=== PATIENT | female | born 1995 | race Hispanic/Latino ===

== ENCOUNTER 2023-07-14 21:03 | Emergency (ER) | payer OTHER ==
[~2023-07-14] VITALS: Ht 162.6 cm; Wt 102.1 kg
[2023-07-14] MEDS: ACETAMINOPHEN 325 MG TAB PO STA (21:32)
[2023-07-14 21:52] LABS: CLARITY,URINE CLEAR (CLEAR); COLOR,URINE YELLOW (YELLOW); GLUCOSE, URINE NEGATIVE (NEGATIVE); KETONES,URINE NEGATIVE (NEGATIVE); LEUKOCYTE ESTERASE ,URINE NEGATIVE (NEGATIVE); NITRITE,URINE NEGATIVE (NEGATIVE); PH,URINE 6 (5 - 7); PROTEIN,URINE DIPSTICK NEGATIVE (NEGATIVE)
[2023-07-14 21:53] LABS: BILIRUBIN,URINE NEGATIVE (NEGATIVE); URINE UROBILINOGEN 0.2 mg/dL (0.2 - 1)
[2023-07-14 21:54] LABS: BACTERIA,URINE MANY /HPF; EPITHELIAL CELLS,URINE MANY /LPF; RBC,URINE 0-5 /HPF (0-5)
[2023-07-14] MEDS: LIDOCAINE 4% PATCH TP STA (21:59)
[2023-07-14] MEDS ORDERED: CEPHALEXIN500 M1 PO (22:40)
[2023-07-14] MEDS ORDERED: LIDOCAINE1 EACH TOP (22:40)
[2023-07-14 23:04] VITALS: BP 114/60; PULSE 70; RESP 17; TEMP 98.2; O2SAT 100
[2023-07-15] MEDS ORDERED: AUGMENTIN 500-1 EACH PO (20:56)
== END 2023-07-14 23:01 | disposition home or self-care (01) ==
LOC: ER 21:20
DX: O26.891 Other specified pregnancy related conditions, first trimester (principal); M54.50 Low back pain, unspecified
CPT/HCPCS: 81001; 99283